=== PATIENT | female | born 1985 ===

== ENCOUNTER 2017-07-01 22:29 | Emergency (ER) | payer BC ==
[2017-07-01 23:13] LABS: BASO # 0.1 K/uL (0.0-0.2); BASO % 1.1 % (0.0-2.0); EOS # 0.1 K/uL (0.0-0.7); EOS % 1.1 % (0.0-4.0); HEMOGLOBIN 10.8 g/dL (11.0-16.0); LYMPH # 3.9 K/uL (1.0-4.3); LYMPH % 32.4 % (20.0-40.0); MEAN CELL VOLUME 77.9 fL (81.0-99.0); MEAN CORPUSCULAR HEMOGLOBIN 25.1 pg (27.0-31.0); MEAN CORPUSCULAR HGB CONC 32.3 g/dL (33.0-37.0); MEAN PLATELET VOLUME 10.5 fL (7.2-11.7); MONO # 0.9 K/uL (0.0-0.8); MONO % 7.5 % (0.0-10.0); NEUT # 6.9 K/uL (1.8-7.0); NEUT % 57.9 % (50.0-75.0); RBC 4.3 Mil/uL (3.80-5.20); RED CELL DISTRIBUTION WIDTH 15.4 % (11.5-14.5)
[2017-07-01 23:28] LABS: ALBUMIN 3.8 g/dL (3.5-5.0); ALT/SGPT 17 U/L (9-52); AST/SGOT 27 U/L (14-36); BLOOD UREA NITROGEN 11 mg/dL (7-17); CALCIUM 8.6 mg/dl (8.6-10.4); GFR AFRICAN-AMERICAN > 60; GFR NON-AFRICAN AMERICAN > 60
--- NOTE | 2017-07-01 23:52 | C.PDOC ---
History Of Present Illness 32 year old female presents to the ED c/o vaginal spitting that started approximately 1 hour ago, patient state she noticed some clots but unknown tissue. Patient is 1 miscarriage and 1 , LMP was 2 months ago. Patient had a positive test done at home. Patient denies urinary symptoms, fever, chills, back pain, rash. Chief Complaint (Nursing): Female Genitourinary History Per: Patient History/Exam Limitations: no limitations Onset/Duration Of Symptoms: Days Current Symptoms Are (Timing): Still Present Quality Of Discomfort: "Pain" Alleviating Factors: None Recent travel outside of the [place]: No Additional History Per: Patient Abnormal Vaginal Bleeding: Yes Last Menstral Period: 2 months ago : 4 Para: 2 Miscarriage: 1 Past Medical History Reviewed: Historical Data, Nursing Documentation, Vital Signs Vital Signs: Last Vital Signs Temp 99.1 F 07/02/17 01:54 Pulse 65 07/02/17 01:54 Resp 16 07/02/17 01:54 BP 110/70 07/02/17 01:54 Pulse Ox 99 07/02/17 02:55 - Medical History PMH: No Chronic Diseases Surgical History: Cholecystectomy Family History: States: No Known Family Hx - Social History Hx Alcohol Use: No Hx Substance Use: No - Immunization History Hx Tetanus Toxoid Vaccination: No Hx Influenza Vaccination: No Hx Pneumococcal Vaccination: No Review Of Systems Constitutional: Negative for: Fever, Chills Cardiovascular: Negative for: Chest Pain Respiratory: Negative for: Shortness of Breath Gastrointestinal: Negative for: Nausea, Vomiting, Abdominal Pain Genitourinary: Positive for: Vaginal Discharge, Vaginal Bleeding Skin: Negative for: Rash Neurological: Negative for: Weakness, Numbness Physical Exam - Physical Exam Appears: Non-toxic, No Acute Distress Skin: Normal Color, Warm, Dry Head: Atraumatic, Normacephalic Eye(s): bilateral: Normal Inspection Nose: No Discharge Oral Mucosa: Moist Neck: Normal ROM, Supple Chest: Symmetrical Cardiovascular: Rhythm Regular, No Murmur Respiratory: Normal Breath Sounds, No Rales, No Rhonchi, No Wheezing Gastrointestinal/Abdominal: Soft, No Tenderness, No Mass, No Guarding, No Rebound Pelvic: Normal External Exam, Normal Speculum Exam (5 cc old blood in vault with OS closed), No Cervical Motion Tenderness, No Cervix Open, No Adnexal Tenderness, Enlarged Uterus (anterior 6-8 weeks size) Extremity: Normal ROM, No Tenderness, No Swelling Neurological/Psych: Oriented x3 Gait: Steady ED Course And Treatment - Laboratory Results Result Diagrams: 07/01/17 23:16 07/01/17 23:17 O2 Sat by Pulse Oximetry: 99 (ON RA) Pulse Ox Interpretation: Normal - CT Scan/US US pelvis Other Rad Studies (CT/US): Read By Radiologist, Radiology Report Reviewed CT/US Interpretation: Addendum created by Immanuel Brandon MD on 07/02/2017 2:11 AM Eastern Time ([place] & [place]). THIS REPORT CONTAINS FINDINGS THAT MAY BE CRITICAL TO PATIENT CARE. The. findings were verbally communicated via telephone conference with Elisa Xavier at. 2:11 AM EDT on 07/02/2017. The findings were acknowledged and understood. Initial Report created on 07/02/2017 2:07 AM Eastern Time ([place] & [place]). EXAM: US , Transvaginal. CLINICAL HISTORY: 32 years old, female; Signs and symptoms; Lmp or gestational age (in weeks): 05/19/17; Antepartum. complications; Bleeding; ; Additional info : Vag bleeding. TECHNIQUE: Real-time transvaginal obstetrical ultrasound of the maternal pelvis and a first trimester . with image documentation. Transvaginal imaging was used for better evaluation of the fetus and. adnexa. COMPARISON: No relevant prior studies available. FINDINGS: Gestation: Gestational sac. Yolk sac. No pole. Mean sac diameter of 1.6 cm, correlating with. gestational age of 6 weeks 0 days. Uterus/cervix: No subchorionic hemorrhage. No cervical dilatation or effacement. Ovaries: Normal ovaries. No adnexal masses. Free fluid: No significant free fluid. IMPRESSION : 1. Findings suspicious but not diagnostic of failure. Short-term sonographic followup is. recommended. Thank you for allowing us to participate in the care of your patient. Dictated and Authenticated by: Immanuel Brandon MD. 07/02/2017 2:07 AM Eastern Time ( & [place]) Medical Decision Making Medical Decision Making: Impression: early vs ectopic Plan: * Labs * HCG was 38,000 US ordered * US Disposition - Disposition Referrals: Non [facility] Provider, [Primary Care Provider] - Kendal Mullen MD [Staff Provider] - Disposition: HOME/ ROUTINE Disposition Time: 04:33 Condition: GOOD Instructions: Threatened Miscarriage Forms: [facility] (Divehi) Print Language: MACEDONIAN - Clinical Impression Clinical Impression: Threatened - Scribe Statement The provider has reviewed the documentation as recorded by the Scribe Boo Hsieh All medical record entries made by the Scribe were at my direction and personally dictated by me. I have reviewed the chart and agree that the record accurately reflects my personal performance of the history, physical exam, medical decision making, and the department course for this patient. I have also personally directed, reviewed, and agree with the discharge instructions and disposition.
[2017-07-02 01:55] VITALS: BP 110/70; PULSE 65; RESP 16; TEMP 99.1
--- NOTE | 2017-07-02 02:07 | US ---
EXAM: US , Transvaginal CLINICAL HISTORY: 32 years old, female; Signs and symptoms; Lmp or gestational age (in weeks): 05/19/17; Antepartum complications; Bleeding; ; Additional info: Vag bleeding TECHNIQUE: Real-time transvaginal obstetrical ultrasound of the maternal pelvis and a first trimester with image documentation. Transvaginal imaging was used for better evaluation of the fetus and adnexa. COMPARISON: No relevant prior studies available. FINDINGS: Gestation: Gestational sac. Yolk sac. No pole. Mean sac diameter of 1.6 cm, correlating with gestational age of 6 weeks 0 days. Uterus/cervix: No subchorionic hemorrhage. No cervical dilatation or effacement. Ovaries: Normal ovaries. No adnexal masses. Free fluid: No significant free fluid. IMPRESSION: 1. Findings suspicious but not diagnostic of failure. Short-term sonographic followup is recommended.
[2017-07-02 02:55] VITALS: O2SAT 99
== END 2017-07-02 02:19 | disposition home or self-care (01) ==
LOC: C.ER 22:29 → SUPCPDRO 22:29 → C.ER 07-02 02:19
DX: O20.0 Threatened abortion (principal)